=== PATIENT | female | born 1995 | race Two or more races ===

== ENCOUNTER 2024-03-25 18:39 | Emergency (ER) | payer OTHER ==
[~2024-03-25] VITALS: Ht 162.6 cm; Wt 99.8 kg
[2024-03-25] MEDS ORDERED: PRENA1 TRUE CO1 EACH PO (19:43)
[2024-03-25 20:15] LABS: HEMATOCRIT 40.8 % (36.0-45.00); HEMOGLOBIN 14.1 g/dL (12.0-15.00); MEAN CELL VOLUME 84.8 fL (80.00-100.00); MEAN CORPUSCULAR HEMOGLOBIN 29.3 pg (27.00-32.0); MEAN CORPUSCULAR HGB CONC 34.5 g/dl (32.0-36.0); PLATELET COUNT 308 K/uL (150-450); RED CELL DISTRIBUTION WIDTH 13.1 % (11.5-14.5)
[2024-03-25 20:26] LABS: INR 1.04; PARTIAL THROMBOPLASTIN TIME 30.8 SECONDS (22.0-34.0); PROTHROMBIN TIME 11.3 SECONDS (9.0-11.5)
[2024-03-25 20:32] LABS: CALCIUM 9.7 mg/dL (8.5-10.1); CREATININE SERUM 0.93 mg/dL (0.55-1.02); GFR 72.87; POTASSIUM 3.89 mEq/L (3.5-5.1)
[2024-03-25 20:51] LABS: URINE APPEARANCE Turbid; URINE BILIRRUBIN Small (NEGATIVE); URINE BLOOD Large; URINE COLOR Red; URINE GLUCOSE Negative (NEGATIVE); URINE KETONE Negative (NEGATIVE); URINE LEUKOCYTE Moderate; URINE NITRATE Negative; URINE UROBILINOGEN 0.2 E.U./dl
[2024-03-25 20:54] LABS: URINE BACTERIA 5425.5 uL (0.0-1933); URINE EPITHELIAL CELLS 45.4 uL (0.0-38.8); URINE WBC 247.5 uL (0.0-23.2)
[2024-03-25 21:13] LABS: URINE PROTEIN 300 (NEGATIVE); URINE RBC > 10558.9 uL (0.0-20.8)
== END 2024-03-25 23:28 | disposition home or self-care (01) ==
LOC: ER 18:40
PROVIDERS: General Practice
DX: O03.9 Complete or unspecified spontaneous abortion without complication (principal)

== ENCOUNTER 2024-07-14 09:46 | Emergency (ER) | payer OTHER ==
[~2024-07-14] VITALS: Ht 162.6 cm; Wt 111.6 kg
[~2024-07-14 09:46] MED LIST: PRENA1 TRUE CO1 EACH PO
[2024-07-14 11:10] LABS: HEMATOCRIT 39.7 % (36.0-45.00); HEMOGLOBIN 13.6 g/dL (12.0-15.00); MEAN CELL VOLUME 84.9 fL (80.00-100.00); MEAN CORPUSCULAR HEMOGLOBIN 29.1 pg (27.00-32.0); MEAN CORPUSCULAR HGB CONC 34.2 g/dl (32.0-36.0); PLATELET COUNT 257 K/uL (150-450); RED BLOOD COUNT 4.68 M/uL (4.00-6.00)
[2024-07-14 11:20] LABS: PH,URINE 6.5 (5.0-8.0); URINE APPEARANCE Clear; URINE BILIRRUBIN Negative (NEGATIVE); URINE BLOOD Negative; URINE COLOR Yellow; URINE GLUCOSE Negative (NEGATIVE); URINE KETONE 15 (NEGATIVE); URINE LEUKOCYTE Negative; URINE NITRATE Negative; URINE PROTEIN 30 (NEGATIVE); URINE UROBILINOGEN 0.2 E.U./dl
[2024-07-14 11:23] LABS: URINE BACTERIA 2379.1 uL (0.0-1933); URINE EPITHELIAL CELLS 50.3 uL (0.0-38.8); URINE WBC 12.3 uL (0.0-23.2)
[2024-07-14 11:32] LABS: PARTIAL THROMBOPLASTIN TIME 29.3 SECONDS (22.0-34.0); PROTHROMBIN TIME 10.9 SECONDS (9.0-11.5)
[2024-07-14 11:32] LABS: URINE CAST 0.14 uL (0.0-1.40)
[2024-07-14 12:13] LABS: CALCIUM 9.6 mg/dL (8.5-10.1); CREATININE SERUM 0.57 mg/dL (0.55-1.02); GFR 128.21; POTASSIUM 3.92 mEq/L (3.5-5.1)
== END 2024-07-14 13:01 | disposition home or self-care (01) ==
LOC: ER 09:49
PROVIDERS: General Practice
DX: O20.8 Other hemorrhage in early pregnancy (principal); Z3A.12 12 weeks gestation of pregnancy

== ENCOUNTER 2024-11-08 10:24 | Outpatient (CLI) | payer OTHER | END 2024-11-08 11:25 | disposition home or self-care (01) | LOC: NST 10:24 | PROVIDERS: ATTEND Obstetrics & Gynecology Maternal & Fetal Medicine | DX: Z34.83 Encounter for supervision of other normal pregnancy, third trimester (principal) ==

== ENCOUNTER 2024-11-16 10:36 | Outpatient (CLI) | payer OTHER | END 2024-11-16 11:16 | disposition home or self-care (01) | LOC: NST 10:36 | PROVIDERS: ATTEND Obstetrics & Gynecology Maternal & Fetal Medicine | DX: Z34.83 Encounter for supervision of other normal pregnancy, third trimester (principal) ==

== ENCOUNTER 2024-11-29 10:57 | Outpatient (CLI) | payer OTHER | END 2024-11-29 11:55 | disposition home or self-care (01) | LOC: NST 10:57 | PROVIDERS: ATTEND Obstetrics & Gynecology | DX: Z34.83 Encounter for supervision of other normal pregnancy, third trimester (principal) ==

== ENCOUNTER 2024-12-20 14:48 | Outpatient (CLI) | payer OTHER | END 2024-12-20 16:21 | disposition home or self-care (01) | LOC: NST 14:48 | PROVIDERS: ATTEND Obstetrics & Gynecology Maternal & Fetal Medicine | DX: Z34.83 Encounter for supervision of other normal pregnancy, third trimester (principal) ==

== ENCOUNTER → 2024-12-28 | Outpatient (CLI) | payer OTHER | END | disposition home or self-care (01) | LOC: NST 09:58 | PROVIDERS: ATTEND Obstetrics & Gynecology | DX: Z34.83 Encounter for supervision of other normal pregnancy, third trimester (principal) ==

== ENCOUNTER 2024-12-31 15:30 | Inpatient (IN) | payer OTHER ==
[~2024-12-31] VITALS: Ht 162.6 cm; Wt 3.2 kg
[2025-01-04] MEDS ORDERED: MAGNESIUM SULFATE IN WATER 0.04 GM/ML IV.SOLN IV SCH (13:00)
[2025-01-04] MEDS ORDERED: MAGNESIUM SULFATE IN WATER 4 GM/100 ML PIGGYBACK IV ONE ×2 (13:00→13:41)
[2025-01-04 13:10] VITALS: BP 124/84; O2SAT 98
[2025-01-04] MEDS ORDERED: MAGNESIUM SULFATE IN WATER 0.04 GM/ML IV.SOLN IV ONE (13:51)
[2025-01-04 14:11] LABS: URINE APPEARANCE Clear; URINE BILIRRUBIN Negative (NEGATIVE); URINE BLOOD Negative; URINE COLOR Yellow; URINE GLUCOSE Negative (NEGATIVE); URINE KETONE Trace (NEGATIVE); URINE LEUKOCYTE Negative; URINE NITRATE Negative; URINE UROBILINOGEN 1.0 E.U./dl
[2025-01-04 14:14] LABS: URINE BACTERIA 614.3 uL (0.0-1933); URINE CAST 2.49 uL (0.0-1.40); URINE EPITHELIAL CELLS 61.3 uL (0.0-38.8); URINE RBC 19.5 uL (0.0-20.8); URINE WBC 18.6 uL (0.0-23.2)
[2025-01-04] MEDS ORDERED: VAZALORE81 MG PO (14:18)
[2025-01-04] MEDS ORDERED: RINGERS SOLUTION,LACTATED 1,000 ML IV SCH (14:30)
[2025-01-04] MEDS ORDERED: CITRIC ACID/SODIUM CITRATE 30 ML BLIST.PACK PO SCH (14:30)
[2025-01-04] MEDS ORDERED: CEFAZOLIN SODIUM 1,000 MG VIAL IV SCH (14:30)
[2025-01-04 14:31] LABS: BASO % 0.2 % (0.1-1.2); EOS # 0.06 (0.04-0.54); EOS % 0.5 % (0.7-7.0); LYMPH # 2.19 (1.18-3.74); LYMPH % 17.5 % (19.3-53.1); MEAN PLATELET VOLUME 13.00 fl (9.4-12.4); MONO # 0.43 (0.24-0.82); MONO % 3.4 % (4.7-12.5); NEUT # 9.68 (1.56-6.13); NEUT % 77.7 % (34.0-71.1); RED CELL DISTRIBUTION WIDTH 14.6 % (11.6-14.4)
[2025-01-04 14:41] LABS: ALT/SGPT 28.0 U/L (12-78); AST/SGOT 20.0 U/L (15-37); BILIRUBIN TOTAL 0.21 mg/dL (0.3-1.2); BUN CREA RATIO 19.0 (7.0-25.0); CREATININE SERUM 0.75 mg/dL (0.55-1.02); GFR 92.69; GLOBULINA 3.9 G/DL (2.4-3.5); GLUCOSE FASTING 90.0 mg/dL (65-100); LDH 158.0 U/L (84-246); OSMOLALITY SERUM 279.0 MOSM/KG (275-295)
[2025-01-04 15:01] LABS: TYPE CELLS SQUAMOUS; URINE MUCUS SCANT; URINE PROTEIN 300 (NEGATIVE)
[2025-01-04 15:04] VITALS: BP 126/76
[2025-01-04 15:05] LABS: INR 0.94
[2025-01-04] MEDS ORDERED: OXYTOCIN 10 UNITS/ML VIAL ONE ×2 (16:51→18:50)
[2025-01-04] MEDS ORDERED: ERYTHROMYCIN BASE OPHT 1GM EACH TUBE OP ONE (16:51)
[2025-01-04] MEDS ORDERED: OXYTOCIN 1,000 ML IV ONE (19:45)
[2025-01-04] MEDS ORDERED: KETOROLAC TROMETHAMINE 30 MG VIAL IV SCH (20:00)
[2025-01-04] MEDS ORDERED: MORPHINE SULFATE 4 MG/ML CARTRIDGE IV SCH (21:00)
[2025-01-04] MEDS ORDERED: KETOROLAC TROMETHAMINE 30 MG VIAL IV ONE (23:05)
[2025-01-04] MEDS ORDERED: MORPHINE SULFATE 4 MG/ML VIAL IV ONE (23:30)
[2025-01-05] MEDS ORDERED: MORPHINE SULFATE 4 MG/ML VIAL IV ONE (00:10)
[2025-01-05 01:20] VITALS: BP 148/81
[2025-01-05 01:25] VITALS: O2SAT 99
[2025-01-05 04:40] VITALS: BP 146/84
[2025-01-05] MEDS ORDERED: ACETAMINOPHEN 500 MG GEL..CAP PO SCH (06:00)
[2025-01-05 08:00] VITALS: BP 143/84
[2025-01-05] MEDS ORDERED: SIMETHICONE 125 MG CAPSULE PO SCH (09:00)
[2025-01-05] MEDS ORDERED: DOCUSATE SODIUM 100MG CAP PO SCH (09:00)
[2025-01-05] MEDS ORDERED: ENOXAPARIN SODIUM 40 MG/0.4 ML SYRINGE SUBCUTANEO SCH (09:00)
[2025-01-05] MEDS ORDERED: GABAPENTIN 300 MG CAPSULE PO SCH (09:00)
[2025-01-05] MEDS ORDERED: PNV,CALCIUM 72/IRON/FOLIC ACID 1 TAB TABLET PO SCH (09:00)
[2025-01-05 09:26] LABS: BASO % 0.1 % (0.1-1.2); EOS # 0.05 (0.04-0.54); EOS % 0.4 % (0.7-7.0); LYMPH # 2.71 (1.18-3.74); LYMPH % 20.2 % (19.3-53.1); MONO # 0.52 (0.24-0.82); MONO % 3.9 % (4.7-12.5); NEUT # 10.05 (1.56-6.13); NEUT % 75.0 % (34.0-71.1); RED CELL DISTRIBUTION WIDTH 15.0 % (11.6-14.4)
[2025-01-05 17:17] VITALS: BP 139/83; O2SAT 97
[2025-01-05 22:07] LABS: BASO % 0.2 % (0.1-1.2); EOS # 0.09 (0.04-0.54); EOS % 0.7 % (0.7-7.0); LYMPH # 2.43 (1.18-3.74); LYMPH % 18.8 % (19.3-53.1); MEAN PLATELET VOLUME 12.40 fl (9.4-12.4); MONO # 0.45 (0.24-0.82); MONO % 3.5 % (4.7-12.5); NEUT # 9.87 (1.56-6.13); NEUT % 76.3 % (34.0-71.1); RED CELL DISTRIBUTION WIDTH 14.9 % (11.6-14.4)
[2025-01-05 22:32] LABS: ALT/SGPT 32.0 U/L (12-78); AST/SGOT 21.0 U/L (15-37); BILIRUBIN TOTAL 0.22 mg/dL (0.3-1.2); BUN CREA RATIO 18.0 (7.0-25.0); CREATININE SERUM 0.71 mg/dL (0.55-1.02); GFR 98.75; GLOBULINA 3.4 G/DL (2.4-3.5); GLUCOSE FASTING 140.0 mg/dL (65-100); OSMOLALITY SERUM 284.0 MOSM/KG (275-295)
[2025-01-06] VITALS: BP 137/89
[2025-01-06 08:53] VITALS: BP 136/85
== END 2025-01-06 13:56 | disposition home or self-care (01) | DRG 788 ==
LOC: LDR 01-04 12:46 → O/R 01-04 20:33 → OB/GYN 01-04 21:42
PROVIDERS: Obstetrics & Gynecology Gynecology; ADMIT Obstetrics & Gynecology; ATTEND Obstetrics & Gynecology
PROC: 4A1HXCZ Monitoring of Products of Conception, Cardiac Rate, External Approach (ICD-10-PCS; 2025-01-04)
PROC: 10D00Z1 Extraction of Products of Conception, Low, Open Approach (ICD-10-PCS; principal; 2025-01-04 19:45)
DX: O14.14 Severe pre-eclampsia complicating childbirth (principal); Z3A.38 38 weeks gestation of pregnancy; Z37.0 Single live birth